=== PATIENT | male | born 1950 | race Caucasian/White ===

== ENCOUNTER 2016-11-19 09:13 | Emergency (ER) | payer MEDICARE ==
[2016-11-19 12:54] VITALS: BP 176/84
--- NOTE | 2016-11-19 13:47 | ED Physician Documentation ---
Hip Injury/Pain - HISTORIAN Historian: patient - HPI Stated Complaint: rt hip pain Chief Complaint: Hip Injury Additional Information: fell Tuesday, ambulating with no pain x 2 days then severe pain with ambulating yesterday and today, also hurt 1st and 5th toes right foot Onset: days ago (4) Where: home Severity: severe Duration: intermittent pain (when ambulating) Context: fall Symptoms Prior to Fall: none Other Injuries: other (right foot). denies: loss of consciousness Further Comments: no - ROS CONST: no problems RESP: denies: shortness of breath, cough non-productive, cough-productive GI/: none EYES/ENT: none MS/SKIN/LYMPH: other (right hip and toes pain) NEURO/PSYCH: denies: confusion, anxiety, depression - PAST HX Cardiac Disease: none PE Risk Factors: hypertension Other History: diabetes Type 2, hyperlipidemia Surgeries/Procedures: other (ortho) Immunizations: referred to PCP Allergies/Adverse Reactions: Allergies Allergy/AdvReac Type Severity Reaction Status Date / Time Penicillins Allergy Verified 11/19/16 10:01 Home Medications: Ambulatory Orders Medication Instructions Recorded Aspirin [Adult Low Dose Aspirin EC] 81 mg PO DAILY 11/19/16 Atorvastatin Calcium 20 mg PO DAILY 11/19/16 Felodipine [Plendil] 5 mg PO DAILY 11/19/16 Gabapentin [Gabapentin] 200 mg PO QID 11/19/16 Insulin Glargine,Hum.rec.anlog 17 units IM DAILY 11/19/16 [Lantus Solostar] Levothyroxine Sodium [Synthroid] 25 mcg PO DAILY 11/19/16 Lisinopril [Zestril] 20 mg PO DAILY 11/19/16 Magnesium Oxide [Magnesium] 400 mg PO DAILY 11/19/16 Melatonin [Melatonin] 5 mg PO DAILY 11/19/16 Metformin HCl [Glucophage] 500 mg PO DAILY 11/19/16 Metoprolol Tartrate [Lopressor] 50 mg PO DAILY 11/19/16 Multivitamin [Tab-A-Yvonne] 1 each PO DAILY 11/19/16 - SOCIAL HX Smoking History: non-smoker, quit greater than 1 year Alcohol Use: none Drug Use: none - FAMILY HX Family History: No - VITAL SIGNS Vital Signs: Vital Signs Temp Pulse Resp BP Pulse Ox 80 16 176/84 98 11/19/16 12:47 11/19/16 12:47 11/19/16 12:47 11/19/16 09:41 - REVIEWED ASSESSMENTS Nursing Assessment Reviewed: Yes Vitals Reviewed: Yes Progress - Results/Orders Results/Orders: right hip and right fott x-rays ordered - Progress Progress: pt's right 1st toe and 2nd toe mikey taped Critical Care Note - Critical Care Note Total Time (mins): 0 ED Results Lab/Radiology - Lab Results Lab Results: none ordered - Radiology Radiology Impressions: x-ray right foot shows fx base of 1st distal phalynx, nondisplaced. Right hip neg for fx or dislocation - Orders Orders: ED Orders Category Date Time Status FOOT 3 VIEWS OR MORE [RAD] Stat Exams 11/19/16 Ordered RT HIP 2VIEW COMPLETE [RAD] Routine Exams 11/19/16 Ordered Hip Injury/Pain Physical Exam - EXAM General Appearance: alert, moderate distress Extremities: other (ecchymosis right 1st and 5th toes, pain with rom both. No deformity right hip, nontender, full rom without pain.) EENT: eye inspection normal, ENT inspection normal, pharynx normal, no signs of dehydration, HILARY, no nystagmus, TM's nml Neck: nml inspection, non-tender Respiratory: chest non-tender, breath sounds nml CVS: reg rate & rhythm, heart sounds normal Abdomen: non-tender, no organomegaly, nml bowel sounds, no distention Back: non-tender, painless ROM Skin: warm/dry, normal color Neuro/Psych: oriented x3, neuro grossly intact, mood/affect nml Discharge Clincal Impression: Fracture of right great toe Qualifiers: Encounter type: initial encounter Fracture type: closed Phalanx: distal Fracture alignment: nondisplaced Qualified Code(s): S92.424A - Nondisplaced fracture of distal phalanx of right great toe, initial encounter for closed fracture Hip sprain Qualifiers: Encounter type: initial encounter Laterality: right Qualified Code(s): S73.101A - Unspecified sprain of right hip, initial encounter Referrals: Sahil Anand MD [Primary Care Provider] - 2 Days Home Medications: Ambulatory Orders Aspirin [Adult Low Dose Aspirin EC] 81 mg PO DAILY 11/19/16 Atorvastatin Calcium 20 mg PO DAILY 11/19/16 Felodipine [Plendil] 5 mg PO DAILY 11/19/16 Gabapentin [Gabapentin] 200 mg PO QID 11/19/16 Insulin Glargine,Hum.rec.anlog [Lantus Solostar] 17 units IM DAILY 11/19/16 Levothyroxine Sodium [Synthroid] 25 mcg PO DAILY 11/19/16 Lisinopril [Zestril] 20 mg PO DAILY 11/19/16 Magnesium Oxide [Magnesium] 400 mg PO DAILY 11/19/16 Melatonin [Melatonin] 5 mg PO DAILY 11/19/16 Metformin HCl [Glucophage] 500 mg PO DAILY 11/19/16 Metoprolol Tartrate [Lopressor] 50 mg PO DAILY 11/19/16 Multivitamin [Tab-A-Yvonne] 1 each PO DAILY 11/19/16 Comments: Discharged in stable condition to care of with scripts for parafon forte dsc 500 mg #20 1 p.o. qid and meloxicam 15 mg #7 1 p.o. daily both generic, no refill Condition: Stable Disposition: 01 HOME, SELF-CARE Decision to Admit: NO Decision Time: 12:45
--- NOTE | 2016-11-19 15:04 | Diagnostic Imaging Report ---
[facility] [id number] [facility] [address] [address] Report Submission Date: Nov 19, 2016 11:42:22 AM ROLLING MACHINE OPERATOR AUTOMATIC Patient Study Name: ANAND RESTREPO Date: Nov 19, 2016 11:08:18 AM ROLLING MACHINE OPERATOR AUTOMATIC Modality Type: CR Gender: M Description: PELVIS : 46 Institution: [facility] Physician [facility] - ER EXAMINATION: Right hip, two views HISTORY: pain after fall FINDINGS: The osseous structures are intact without evidence of acute fracture. The femoral head is well-seated within the acetabulum. The visible portion right hemipelvis is intact. No soft tissue abnormality. There is mild narrowing of the hip joint space present. IMPRESSION: 1. No acute osseous injury. 2. Mild narrowing of the hip joint space. Electronically signed on Nov 19, 2016 11:42:22 AM ROLLING MACHINE OPERATOR AUTOMATIC by: Seven HARTMAN
--- NOTE | 2016-11-19 15:04 | Diagnostic Imaging Report ---
[facility] [address] [facility].[address] [address] Report Submission Date: Nov 19, 2016 11:41:09 AM ADMINISTRATIVE RESOURCES ASSOCIATE Patient Study Name: ANAND RESTREPO Date: Nov 19, 2016 10:59:25 AM ADMINISTRATIVE RESOURCES ASSOCIATE Modality Type: CR Gender: M Description: LOWER EXTREMITY : 46 Institution: [facility] Physician [facility] - ER EXAMINATION: Right foot, three views. HISTORY: Foot pain after fall FINDINGS: There is a fracture through the lateral aspect of the base of the 1st distal phalanx without significant displacement. The remaining osseous structures are intact. IMPRESSION: 1. Fracture the base of the 1st distal phalanx without significant displacement Electronically signed on Nov 19, 2016 11:41:09 AM ADMINISTRATIVE RESOURCES ASSOCIATE by: Seven HARTMAN
== END 2016-11-19 12:47 | disposition home or self-care (01) ==
LOC: ED 09:13
DX: S92.424A Nondisplaced fracture of distal phalanx of right great toe, initial encounter for closed fracture (principal); S73.101A Unspecified sprain of right hip, initial encounter; X58.XXXA Exposure to other specified factors, initial encounter; Y93.9 Activity, unspecified; Y99.9 Unspecified external cause status
CPT/HCPCS: 73502; 73630; 99283

== ENCOUNTER 2017-03-15 14:47 | Outpatient (CLI) | payer MEDICARE | END 2017-03-15 14:52 | disposition home or self-care (01) | LOC: POD 14:47 | PROVIDERS: ATTEND Podiatrist | DX: B35.1 Tinea unguium (principal); M79.675 Pain in left toe(s); M79.674 Pain in right toe(s); E11.42 Type 2 diabetes mellitus with diabetic polyneuropathy; I87.323 Chronic venous hypertension (idiopathic) with inflammation of bilateral lower extremity | CPT/HCPCS: G0463 ==

== ENCOUNTER 2017-07-12 13:13 | Outpatient (CLI) | payer MEDICARE | END 2017-07-12 13:14 | LOC: POD 13:13 | PROVIDERS: ATTEND Podiatrist | DX: E11.42 Type 2 diabetes mellitus with diabetic polyneuropathy (principal); M20.41 Other hammer toe(s) (acquired), right foot; M20.42 Other hammer toe(s) (acquired), left foot; B35.1 Tinea unguium; M79.675 Pain in left toe(s); M79.674 Pain in right toe(s) | CPT/HCPCS: 11721; G0463 ==

== ENCOUNTER 2017-10-07 12:50 | Outpatient (CLI) | payer MEDICARE | END 2017-10-07 12:52 | LOC: POD 12:50 | PROVIDERS: ATTEND Podiatrist | DX: E11.42 Type 2 diabetes mellitus with diabetic polyneuropathy (principal); M20.41 Other hammer toe(s) (acquired), right foot; M20.42 Other hammer toe(s) (acquired), left foot; B35.1 Tinea unguium; M79.674 Pain in right toe(s); M79.675 Pain in left toe(s) | CPT/HCPCS: 11721; G0463 ==

== ENCOUNTER 2018-01-24 14:07 | Outpatient (CLI) | payer MEDICARE | END 2018-01-24 14:10 | LOC: POD 14:07 | PROVIDERS: ATTEND Podiatrist | DX: E11.42 Type 2 diabetes mellitus with diabetic polyneuropathy (principal); M20.41 Other hammer toe(s) (acquired), right foot; M20.42 Other hammer toe(s) (acquired), left foot; B35.1 Tinea unguium; M79.674 Pain in right toe(s); M79.675 Pain in left toe(s) | CPT/HCPCS: 11721; G0463 ==

== ENCOUNTER 2018-04-11 12:53 | Outpatient (CLI) | payer MEDICARE | END 2018-04-11 12:58 | LOC: POD 12:53 | PROVIDERS: ATTEND Podiatrist | DX: E11.42 Type 2 diabetes mellitus with diabetic polyneuropathy (principal); M20.41 Other hammer toe(s) (acquired), right foot; M20.42 Other hammer toe(s) (acquired), left foot; B35.1 Tinea unguium; M79.674 Pain in right toe(s); M79.675 Pain in left toe(s) | CPT/HCPCS: 11721; G0463 ==